=== PATIENT | male | born 1935 | race Caucasian/White ===

== ENCOUNTER 2017-03-11 15:45 | Emergency (ER) | payer OTHER ==
--- NOTE | 2017-03-11 16:09 | PDOC ---
History of Present Illness - General Stated Complaint: CHEST PAIN Time Seen by Provider: 03/11/17 16:04 - History of Present Illness Initial Comments: 03/11/17 16:08 Mr. Last is an 81 yo male with a significant past medical history of HTN, Dementia (nonverbal) and Schizophrenia on Norvasc and Valsartan who presents to the emergency department from rehab facility after he was complaining of pain to the R shoulder. The patient denies chest pain, shortness of breath, headache and dizziness. Denies fever, chills, nausea, vomit, diarrhea and constipation. Denies dysuria, frequency, urgency and hematuria. Allergies: NKDA Past History - Past Medical History Allergies/Adverse Reactions: Allergies Allergy/AdvReac Type Severity Reaction Status Date / Time No Known Allergies Allergy Verified 03/11/17 16:12 Home Medications: Ambulatory Orders Aa/Hydrolyzed Collagen, Whey [Lps Neutral Flavor Liquid] 960 ml PO BID 03/11/17 Acetaminophen 650 mg PO Q6H PRN 03/11/17 Amlodipine Besylate 7.5 mg PO DAILY 03/11/17 Dorzolamide/Timolol/Pf [Cosopt Pf Eye Drops] 1 each OP BID 03/11/17 Labetalol HCl 100 mg PO BID 03/11/17 Lactulose [Cephulac -] 10 gm PO DAILY 03/11/17 Lanolin/Mineral Oil [Eucerin Original Lotion] 250 ml TP TID 03/11/17 Latanoprost 0.005% Eye Drops [Xalatan 0.005% Eye Drops -] 1 drop OD HS 03/11/17 Multivitamin [Poly-Vitamin] 1 each PO DAILY 03/11/17 Quetiapine Fumarate [Seroquel -] 12.5 mg PO HS 03/11/17 Valsartan [Diovan] 160 mg PO DAILY 03/11/17 Cardiac Disorders: No CVA: (APHASIA/ stroke, TBI) CHF: No Diabetes: Yes GI Disorders: Yes (colitis) HTN: Yes Hypercholesterolemia: Yes Psychiatric Problems: Yes (EPISODIC MOOD DISORDER) - Surgical History Neurologic Surgery: Yes (BRAIN INJURY, INTRACRANIAL HEMORR) - Immunization History Immunization Up to Date: Yes - Suicide/Smoking/Psychosocial Hx Smoking History: Unknown if ever smoked Have you smoked in the past 12 months: No Hx Alcohol Use: No Drug/Substance Use Hx: No Substance Use Type: None Hx Substance Use Treatment: No Review of Systems - Review of Systems Comments:: Unable to perform due to nonverbal status. *Physical Exam - Physical Exam Comments: 03/11/17 16:09 GENERAL: Awake, alert to baseline, in no acute distress HEAD: No signs of trauma, normocephalic, atraumatic EYES: PERRLA, EOMI, sclera anicteric, conjunctiva clear ENT: Auricles normal inspection, hearing grossly normal, nares patent, oropharynx clear without exudates. Moist mucosa NECK: Normal ROM, supple, no lymphadenopathy, JVD, or masses LUNGS: No distress, speaks full sentences, clear to auscultation bilaterally HEART: Regular rate and rhythm, normal S1 and S2, no murmurs, rubs or gallops, peripheral pulses normal and equal bilaterally. ABDOMEN: Soft, nontender, normoactive bowel sounds. No guarding, no rebound. No masses EXTREMITIES: Normal inspection, Normal range of motion, no edema. No clubbing or cyanosis. NEUROLOGICAL: Cranial nerves II through XII grossly intact. SKIN: Warm, Dry, normal turgor, no rashes or lesions noted. ED Treatment Course - LABORATORY CBC & Chemistry Diagram: 03/11/17 16:40 03/11/17 16:40 Medical Decision Making - Medical Decision Making 03/11/17 19:01 Patient signed off to Dr. Funk for further care. *DC/Admit/Observation/Transfer Diagnosis at time of Disposition: Headache
--- NOTE | 2017-03-11 16:12 | PDOC ---
Attending Attestation - Resident Resident Name: Ravin Walters - ED Attending Attestation I have performed the following: I have examined & evaluated the patient, The case was reviewed & discussed with the resident, I agree w/resident's findings & plan, Exceptions are as noted - HPI HPI: 03/11/17 16:11 Right Shoulder Pain and Uncontrolled Htn - Physicial Exam PE: 03/11/17 16:11 Happy, Smiling, VSS, Moving Right Arm with no difficulties - Medical Decision Making 03/11/17 16:[address] Walters's Assessment and Plan Discharge Disposition - Diagnosis Headache Qualifiers: Headache type: tension-type Headache chronicity pattern: acute headache Intractability: not intractable Qualified Code(s): G44.209 - Tension-type headache, unspecified, not intractable Right shoulder pain Qualifiers: Chronicity: acute Qualified Code(s): M25.511 - Pain in right shoulder - Discharge Dispostion Disposition: HOME Condition at time of disposition: Good Last Admission D/C Date: 05/12/16 Admit: No - Patient Instructions Printed Discharge Instructions: DI for Headache Additional Instructions: No change in meds or therapies- Follow up with PMD tomorrow Return to us if problems Medical Decision Making - Medical Decision Making 03/11/17 21:07 Patient remains asymptomatic, labs reviewed, will dc back to [place], no change in therapies or meds
[2017-03-11 16:18] VITALS: TEMP 98.9; BMI 24.5
[2017-03-11 16:44] VITALS: BP 146/69; PULSE 70
[2017-03-11 16:46] LABS: MCH 28.4 pg (25.7-33.7); MCHC 33.6 g/dl (32.0-35.9); MEAN CELL VOLUME 84.3 fl (80-96); MEAN PLT VOLUME 11.8 fl (7.5-11.1); PLATELET COUNT 56 K/MM3 (134-434); RDW 16.3 % (11.9-15.9)
[2017-03-11 17:20] LABS: ALBUMIN 3.5 g/dl (3.4-5.0); ALK PHOS 50 U/L (45-117); ANION GAP 8 (8-16); BILIRUBIN,TOTAL 0.3 mg/dL (0.2-1.0); CALCIUM 8.6 mg/dL (8.5-10.1); CO2 27 mmol/L (21-32); CPK 264 IU/L (39-308); GLUCOSE,RANDOM 166 mg/dL (74-106); SGPT/ALT 21 U/L (12-78)
[2017-03-11 17:21] LABS: TROPONIN I < 0.02 ng/ml (0.00-0.05)
[2017-03-11 17:23] LABS: SGOT/AST 23 U/L (15-37)
[2017-03-11 17:45] LABS: PLATELET ESTIMATE DECREASED (NORMAL)
[2017-03-11 21:01] LABS: URINE APPEARANCE CLEAR; URINE BILIRUBIN NEGATIVE (NEGATIVE); URINE BLOOD NEGATIVE (NEGATIVE); URINE COLOR YELLOW; URINE GLUCOSE (UA) 1+ (NEGATIVE); URINE KETONE NEGATIVE (NEGATIVE); URINE LEUK ESTERASE NEGATIVE (NEGATIVE); URINE NITRITE NEGATIVE (NEGATIVE); URINE PROTEIN NEGATIVE (NEGATIVE); URINE UROBILINOGEN NEGATIVE mg/dL (0.2-1.0)
--- NOTE | 2017-03-12 09:52 | EKG ---
Test Reason : Blood Pressure : / mmHG Vent. Rate : 072 BPM Atrial Rate : 072 BPM P-R Int : 168 ms QRS Dur : 082 ms QT Int : 390 ms P-R-T Axes : 060 -34 078 degrees QTc Int : 427 ms NORMAL SINUS RHYTHM POSSIBLE LEFT ATRIAL ENLARGEMENT LEFT AXIS DEVIATION POSSIBLE INFERIOR INFARCT (CITED ON OR BEFORE 28-MAR-2015) NONSPECIFIC T WAVE ABNORMALITY ABNORMAL ECG Confirmed by RAY BLANKENSHIP MD ([id number]) on 03/12/2017 9:52:43 AM Referred By: Confirmed By:RAY BLANKENSHIP MD
== END 2017-03-11 21:49 | disposition home or self-care (01) ==
LOC: JER 15:45
DX: R51 Headache (principal); I10 Essential (primary) hypertension; F20.9 Schizophrenia, unspecified; F03.90 Unspecified dementia, unspecified severity, without behavioral disturbance, psychotic disturbance, mood disturbance, and anxiety; E11.9 Type 2 diabetes mellitus without complications
CPT/HCPCS: 36415; 70450-TC; 71010-TC; 80053; 81003; 82553; 84484; 85025; 93005; 93010; 99285-25

== ENCOUNTER 2018-12-07 21:28 | Emergency (ER) | payer OTHER ==
[2018-12-07] MEDS ORDERED: LACTATED RINGERS SOLUTION 1,000 ML IV STA (22:05)
--- NOTE | 2018-12-07 22:05 | PDOC ---
History of Present Illness - General Chief Complaint: Edema Stated Complaint: HERNIA Time Seen by Provider: 12/07/18 21:41 History Source: Patient Exam Limitations: Clinical Condition - History of Present Illness Initial Comments: 83 yo M from [facility] rehab center w a hx of a left sided inguinal hernia, TBI s/p intracranial brain injury, glaucoma, HTN, NIDDM, HCL, and chronic constipation presents to the ER sent by Dr. Thornton to have his left inguinal hernia evaluated and assessed whether it needs surgical intervention at this time. The patient has a large left inguinal hernia which was supposedly more swollen and painful today than it usually is. He does not answer when asked how long the hernia has been present. He simply just points to the hernia. PCP: Marck Thornton PSH: hernia surgery, brain surgery Social Hx: Non-verbal? resident of [place]. Denies smoking, drinking, or other substance usage. Allergies: NKA, NKDA Past History - Past Medical History Allergies/Adverse Reactions: Allergies Allergy/AdvReac Type Severity Reaction Status Date / Time No Known Allergies Allergy Verified 12/07/18 22:15 Home Medications: Ambulatory Orders Aa/Hydrolyzed Collagen, Whey [Lps Neutral Flavor Liquid] 960 ml PO BID 03/11/17 Acetaminophen 650 mg PO Q6H PRN 03/11/17 Amlodipine Besylate 7.5 mg PO DAILY 03/11/17 Dorzolamide/Timolol/Pf [Cosopt Pf Eye Drops] 1 each OP BID 03/11/17 Labetalol HCl 100 mg PO BID 03/11/17 Lactulose [Cephulac -] 10 gm PO DAILY 03/11/17 Lanolin/Mineral Oil [Eucerin Original Lotion] 250 ml TP TID 03/11/17 Latanoprost 0.005% Eye Drops [Xalatan 0.005% Eye Drops -] 1 drop OD HS 03/11/17 Multivitamin [Poly-Vitamin] 1 each PO DAILY 03/11/17 Quetiapine Fumarate [Seroquel -] 12.5 mg PO HS 03/11/17 Valsartan [Diovan] 160 mg PO DAILY 03/11/17 Cardiac Disorders: No CVA: (APHASIA/ stroke, TBI) CHF: No Diabetes: Yes GI Disorders: Yes (colitis) HTN: Yes Hypercholesterolemia: Yes Psychiatric Problems: Yes (EPISODIC MOOD DISORDER) - Surgical History Neurologic Surgery: Yes (BRAIN INJURY, INTRACRANIAL HEMORR) - Immunization History Immunization Up to Date: Yes - Suicide/Smoking/Psychosocial Hx Smoking History: Unknown if ever smoked Have you smoked in the past 12 months: No Hx Alcohol Use: No Drug/Substance Use Hx: No Substance Use Type: None Hx Substance Use Treatment: No Review of Systems - Review of Systems Able to Perform ROS?: No (Non-verbal) *Physical Exam - Physical Exam General Appearance: Yes: Nourished, Appropriately Dressed, Apparent Distress HEENT: positive: Normal ENT Inspection. negative: Normal Voice Neck: positive: Supple Respiratory/Chest: positive: Lungs Clear, Normal Breath Sounds Cardiovascular: positive: Regular Rhythm, Regular Rate Vascular Pulses: Dorsalis-Pedis (R): 2+, Doralis-Pedis (L): 2+ Gastrointestinal/Abdominal: positive: Normal Bowel Sounds, Soft, Hernia (Large left inguinal hernia). negative: Distended, Guarding, Rebound Male Genitalia: positive: inguinal hernia (There is a large portion of the bowel inside the left testicular sac. The hernia is reducible but very large. There is a clear fascial defect. No evidence of current incarceration or strangulation. ). negative: normal genitalia, discharge, testicular tenderness Lymphatic: negative: Adenopathy Musculoskeletal: positive: Normal Inspection. negative: CVA Tenderness Extremity: positive: Normal Capillary Refill, Normal Inspection, Normal Range of Motion Integumentary: positive: Normal Color, Dry, Warm Neurologic: positive: Normal Mood/Affect, Normal Response, Respond to painful stimul ED Treatment Course - LABORATORY CBC & Chemistry Diagram: 12/07/18 22:50 12/07/18 22:50 Medical Decision Making - Medical Decision Making 83 [facility] w a hx of a left sided inguinal hernia, TBI s/p intracranial brain injury, glaucoma, HTN, NIDDM, HCL, and chronic constipation presents to the ER sent by Dr. Thornton to have his left inguinal hernia evaluated and assessed whether it needs surgical intervention at this time. The patient has a large left inguinal hernia which was supposedly more swollen and painful today than it usually is. He does not answer when asked how long the hernia has been present. He simply just points to the hernia. Vital Signs Temp Pulse Resp BP Pulse Ox 98.1 F 76 16 148/85 98 12/07/18 22:13 12/07/18 22:13 12/07/18 22:13 12/07/18 22:13 12/07/18 22:13 DDx IBNLT: Inguinal hernia - reducible vs incarcerated vs strangulated, electrolyte/metabolic disturbance, Arrhythmia Plan: Labs, urine, EKG, cxr, NPO, IV hydration, Surgery Consult, Re-assess. Hernia successfully and repeatedly reduced by Surgeon. Patient is well appearing and has no present complaints. Dr. thornton is aware of his throbocytopenia and the repeatedly reducible nature of the hernia and agreed that it is okay to send the patient back to the [place]. There is no evidence of incarceration or strangulation. Plan is to DC the patient back to the [place]. - Will print out copy of labs from ER. *DC/Admit/Observation/Transfer Diagnosis at time of Disposition: Recurrent inguinal hernia of left side without obstruction or gangrene - Discharge Dispostion Disposition: HOME Condition at time of disposition: Stable Decision to Admit order: No - Referrals Referrals: Marck Thornton MD [Primary Care Provider] - - Patient Instructions Printed Discharge Instructions: DI for Groin Hernia Additional Instructions: We have reduced your hernia in the ER and are now sending you back to the prison. Come back to the Er immediately if your hernia causes any nausea or vomiting, if it cant be pushed back in, or if he is in pain, or has any other new or worsening concerns. Thank you for coming to the [facility] ER. We hope you feel better soon! Print Language: IRISH - Post Discharge Activity
[2018-12-07 22:15] VITALS: BP 148/85; PULSE 76; TEMP 98.1; BMI 26.4
[2018-12-07 23:11] LABS: BASO % 0.7 % (0-2.0); EOS % 0.1 % (0-4.5); HEMATOCRIT 36.4 % (35.4-49); HEMOGLOBIN 12.3 GM/dL (11.7-16.9); LYMPH % 57.4 % (8-40); MCH 30.1 pg (25.7-33.7); MCHC 33.8 g/dl (32.0-35.9); MEAN CELL VOLUME 88.9 fl (80-96); MEAN PLT VOLUME 10.8 fl (7.5-11.1); MONO % 2.2 % (3.8-10.2); NEUT % 39.6 % (42.8-82.8); PLATELET COUNT 62 K/MM3 (134-434); RBC 4.09 M/mm3 (4.00-5.60); RDW 15.2 % (11.9-15.9); WHITE BLOOD COUNT 2.8 K/mm3 (4.0-10.0)
[2018-12-07 23:20] LABS: PROTHROMBIN TIME (PATIENT) 11.8 SEC (9.7-13.0)
[2018-12-07 23:39] LABS: ALBUMIN 3.8 g/dl (3.4-5.0); BILIRUBIN,TOTAL 0.3 mg/dL (0.2-1); BLOOD UREA NITROGEN 25.4 mg/dL (7-18); CALCIUM 8.8 mg/dL (8.5-10.1); CREATININE 0.8 mg/dL (0.55-1.3); POTASSIUM 3.9 mmol/L (3.5-5.1); TOT PROT 7.4 g/dl (6.4-8.2)
--- NOTE | 2018-12-08 01:16 | PDOC ---
Documentation entered by Kelly Valerio SCRIBE, acting as scribe for Madai Bronson DO. Madai Bronson DO: This documentation has been prepared by the john, Kelly Valerio SCRIBE, under my direction and personally reviewed by me in its entirety. I confirm that the documentation accurately reflects all work, treatment, procedures, and medical decision making performed by me. Attending Attestation - Resident Resident Name: Danny Le - ED Attending Attestation I have performed the following: I have examined & evaluated the patient, The case was reviewed & discussed with the resident, I agree w/resident's findings & plan - HPI HPI: 12/07/18 23:21 The patient is an 83 year old male, from [facility], with a significant PMH of inguinal hernia, TBI (s/p intracranial brain injury), glaucoma, HTN, NIDDM, HCL, and chronic constipation who presents to the emergency department referred by Dr. Thornton, for evaluation and possible admission for inguinal hernia surgery with Dr. Nair. The patient states the pain is worsened with exertion. The patient denies any trauma to the area. The patient denies chest pain, shortness of breath, headache and dizziness. Denies fever, chills, nausea, vomiting, diarrhea and constipation. Denies dysuria, frequency, urgency and hematuria. Allergies: NKA, NKDA Past surgical history: INTRACRANIAL HEMORR Social history: None reported PCP: Marck Mcghee General Surgeon: Dr. Nair - Physicial Exam PE: 12/07/18 23:21 Agree with resident exam. - Medical Decision Making 12/08/18 01:15 83-year-old male sent for evaluation of a left inguinal hernia Hernia reduced at the bedside by surgery Patient will be discharged back to his assisted facility and will follow- up outpatient
--- NOTE | 2018-12-08 01:34 | CONSULT ---
Consult Consult Specialty:: General Surgery Referred by:: Apple Thornton/Darrion Le Reason for Consultation:: left inguinal hernia - increased pain and swelling today - History of Present Illness Chief Complaint: pt does not offer - per snf, hernia was more painful and larger today History of Present Illness: 83yo M with h/o TBI/SDH/dementia/aphasia, HTN, hypothyroidism, DM2, thrombocytopenia, possible h/o hernia repair (?body location), DNR status, with known left inguinal hernia, was sent to ER from [facility] for increased pain and size of hernia today. Nephew/HCP had accompanied patient , but is no longer at bedside. Pt is nonverbal; history is from Dr. Thornton, chart, [place] records and ER personnel only. No reports of N/V. Surgery was asked to assess. He is seen and examined in ER - resident states hernia was mostly reducible by him earlier. Pt has not had any pain medicine. Initially mildly agitated, but calms easily and appears comfortable and smiling by end of exam. Labs significant for wbc 2.8 with ANC 1.1, platelets 62K, lactate 0.7. - History Source History Provided By: Medical Record, Transfer Record Limitations to Obtaining History: Other (nonverbal, dementia, clinical condition ) - Past Medical History HOME ATTENDANT: Yes: CVA, Other (traumatic brain injury/SDH) Cardio/Vascular: Yes: HTN, Hyperlipdemia Heme/Onc: Yes: Thrombocytopenia (being worked up by manager product support - unknown etiology) ENT: Yes: Other (glaucoma) Endocrine: Yes: Diabetes Mellitus, Hypothyroidism - Past Surgical History Past Surgical History: Yes: Craniotomy, Hernia Repair (??? upper midline scar, no groin scars) - Alcohol/Substance Use Hx Alcohol Use: No - Smoking History Smoking history: Unknown if ever smoked Have you smoked in the past 12 months: No - Social History Usual Living Arrangement: Senior Living ADL: Support Services History of Recent Travel: No Home Medications - Allergies Allergies/Adverse Reactions: Allergies Allergy/AdvReac Type Severity Reaction Status Date / Time No Known Allergies Allergy Verified 12/07/18 22:15 - Home Medications Home Medications: Ambulatory Orders Aa/Hydrolyzed Collagen, Whey [Lps Neutral Flavor Liquid] 960 ml PO BID 03/11/17 Acetaminophen 650 mg PO Q6H PRN 03/11/17 Amlodipine Besylate 7.5 mg PO DAILY 03/11/17 Dorzolamide/Timolol/Pf [Cosopt Pf Eye Drops] 1 each OP BID 03/11/17 Labetalol HCl 100 mg PO BID 03/11/17 Lactulose [Cephulac -] 10 gm PO DAILY 03/11/17 Lanolin/Mineral Oil [Eucerin Original Lotion] 250 ml TP TID 03/11/17 Latanoprost 0.005% Eye Drops [Xalatan 0.005% Eye Drops -] 1 drop OD HS 03/11/17 Multivitamin [Poly-Vitamin] 1 each PO DAILY 03/11/17 Quetiapine Fumarate [Seroquel -] 12.5 mg PO HS 03/11/17 Valsartan [Diovan] 160 mg PO DAILY 03/11/17 Home Medications (free text): synthroid, glipizide;. NO asa or blood thinners Family Disease History - Family Disease History Family Disease History: Other: Son (hypercholesterol) Review of Systems Unable to obtain ROS, reason: pt nonverbal Physical Exam Vital Signs: Vital Signs Temperature 98.1 F 12/07/18 22:13 Pulse Rate 76 12/07/18 22:13 Respiratory Rate 16 12/07/18 22:13 Blood Pressure 148/85 12/07/18 22:13 O2 Sat by Pulse Oximetry (%) 98 12/07/18 22:13 Constitutional: Yes: Well Nourished, No Distress, Calm Eyes: Yes: Conjunctiva Clear, EOM Intact HENT: Yes: Atraumatic, Normocephalic Neck: Yes: Supple, Trachea Midline Cardiovascular: Yes: Regular Rate and Rhythm Respiratory: Yes: Regular, CTA Bilaterally Gastrointestinal: Yes: Normal Bowel Sounds, Soft, Hernia (left inguinoscrotal, moderate-sized; repeatedly reducible though it comes back out fairly easily, nontender; bilateral testes palpable in scrotum), Other (healed upper midline scar). No: Distention, Tenderness, Tenderness, Epigastrium ...Rectal Exam: Yes: Deferred Renal/: No: Incontinence, Scrotal Edema Musculoskeletal: No: Joint Stiffness, Joint Swelling Extremities: No: Cool, Cyanosis Edema: Yes Edema: LLE: Trace, RLE: Trace Peripheral Pulses WNL: Yes Integumentary: Yes: Venous Stasis Changes. No: Jaundice, Rash Neurological: Yes: Alert, Aphasia (mumbles but mostly nonverbal/unintelligible speech), Pre-Existing Deficit (see hpi) Psychiatric: Yes: Alert. No: Agitated (initially mildly agitated, calms/ redirects fairly easily) Labs: CBC, BMP 12/07/18 22:50 12/07/18 22:50 CMP Sodium 141 mmol/L (136-145) 12/07/18 22:50 Potassium 3.9 mmol/L (3.5-5.1) 12/07/18 22:50 Chloride 109 mmol/L (98-107) H 12/07/18 22:50 Carbon Dioxide 29 mmol/L (21-32) 12/07/18 22:50 Anion Gap 4 MMOL/L (8-16) L 12/07/18 22:50 BUN 25.4 mg/dL (7-18) H 12/07/18 22:50 Creatinine 0.8 mg/dL (0.55-1.3) 12/07/18 22:50 Est GFR (CKD-EPI)AfAm 94.41 12/07/18 22:50 Est GFR (CKD-EPI)NonAf 81.46 12/07/18 22:50 Random Glucose 103 mg/dL (74-106) 12/07/18 22:50 Lactic Acid 0.6 mmol/L (0.4-2.0) 12/07/18 22:50 Calcium 8.8 mg/dL (8.5-10.1) 12/07/18 22:50 Total Bilirubin 0.3 mg/dL (0.2-1) 12/07/18 22:50 AST 20 U/L (15-37) 12/07/18 22:50 ALT 28 U/L (13-61) 12/07/18 22:50 Alkaline Phosphatase 50 U/L (45-117) 12/07/18 22:50 Total Protein 7.4 g/dl (6.4-8.2) 12/07/18 22:50 Albumin 3.8 g/dl (3.4-5.0) 12/07/18 22:50 Lipase 131 U/L (73-393) 12/07/18 22:50 INR, PTT INR 1.00 (0.83-1.09) 12/07/18 22:50 Problem List - Problems (1) Inguinal hernia of left side without obstruction or gangrene Assessment/Plan: left inguinoscrotal hernia reducible, though it comes back out easily, nontender normal lactate, no history of n/v given not incarcerated, no evidence of bowel compromise or obstruction given DNR status, thrombocytopenia, reducibility - surgical intervention is not necessary at this time would not be inclined to consider operative repair unless it becomes incarcerated or strangulated (threatening bowel viability), or has associated bowel obstruction called and discussed with Dr. Thornton, who is in agreement discussed with Drs. Le and Aiyana in ER ok for d/c back to snf Thank you for the opportunity to participate in the care of this patient. Code(s): K40.90 - UNIL INGUINAL HERNIA, W/O OBST OR GANGR, NOT SPCF RECUR (2) Thrombocytopenia Code(s): D69.6 - THROMBOCYTOPENIA, UNSPECIFIED (3) Aphasia Code(s): R47.01 - APHASIA (4) Diabetes mellitus Code(s): E11.9 - TYPE 2 DIABETES MELLITUS WITHOUT COMPLICATIONS Qualifiers: Diabetes mellitus type: type 2 Diabetes mellitus terminal make up operator insulin use: without terminal make up operator use Diabetes mellitus complication status: without complication Qualified Code(s): E11.9 - Type 2 diabetes mellitus without complications (5) Hypothyroidism Code(s): E03.9 - HYPOTHYROIDISM, UNSPECIFIED Qualifiers: Hypothyroidism type: unspecified Qualified Code(s): E03.9 - Hypothyroidism , unspecified (6) HTN (hypertension) Code(s): I10 - ESSENTIAL (PRIMARY) HYPERTENSION Qualifiers: Hypertension type: essential hypertension Qualified Code(s): I10 - Essential (primary) hypertension (7) Traumatic brain injury Code(s): S06.9X9A - UNSP INTRACRANIAL INJURY W LOC OF UNSP DURATION, INIT Qualifiers: Encounter type: sequela Loss of consciousness presence/duration: with LOC of unspecified duration Qualified Code(s): S06.9X9S - Unspecified intracranial injury with loss of consciousness of unspecified duration, sequela
--- NOTE | 2018-12-08 13:41 | EKG ---
Test Reason : Blood Pressure : / mmHG Vent. Rate : 067 BPM Atrial Rate : 067 BPM P-R Int : 184 ms QRS Dur : 086 ms QT Int : 412 ms P-R-T Axes : 069 -37 063 degrees QTc Int : 435 ms NORMAL SINUS RHYTHM LEFT AXIS DEVIATION POSSIBLE ANTERIOR INFARCT , AGE UNDETERMINED ABNORMAL ECG WHEN COMPARED WITH ECG OF 11-MAR-2017 15:53, NONSPECIFIC T WAVE ABNORMALITY NO LONGER EVIDENT IN ANTERIOR LEADS Confirmed by TSERING JASMINE, JERONIMO ([id number]) on 12/08/2018 1:40:49 PM Referred By: Confirmed By:JERONIMO CAGLE MD
== END 2018-12-08 03:48 ==
LOC: JER 21:28
PROC: 3E0337Z Introduction of Electrolytic and Water Balance Substance into Peripheral Vein, Percutaneous Approach (ICD-10-PCS; principal; 2018-12-07)
DX: K40.91 Unilateral inguinal hernia, without obstruction or gangrene, recurrent (principal); I10 Essential (primary) hypertension; E78.5 Hyperlipidemia, unspecified; D69.6 Thrombocytopenia, unspecified; E03.9 Hypothyroidism, unspecified; E11.9 Type 2 diabetes mellitus without complications; Z79.84 Long term (current) use of oral hypoglycemic drugs; Z87.820 Personal history of traumatic brain injury; I69.820 Aphasia following other cerebrovascular disease; F39 Unspecified mood [affective] disorder
CPT/HCPCS: 36415; 71045-TC-FY; 80053; 83605; 83690; 85025; 85610; 93005; 93010; 99283-25

== ENCOUNTER 2019-04-16 17:08 | Emergency (ER) | payer OTHER ==
[2019-04-16 17:21] VITALS: BMI 22.7
--- NOTE | 2019-04-16 17:30 | PDOC ---
Attending Attestation - Resident Resident Name: Fredis Ventura - ED Attending Attestation I have performed the following: I have examined & evaluated the patient, The case was reviewed & discussed with the resident, I agree w/resident's findings & plan, Exceptions are as noted - HPI HPI: 04/16/19 17:41 83yo male with hx of TBI who is nonverbal at baseline presents for eval of a fall at the [facility]. Pt is unable to provide any hx. Per the son, pt able to walk and usually more responsive. Pt awake, not following commands. +reflexes intact , no pain with rom of joints. - Physicial Exam PE: 04/16/19 17:48 Gen: awake, opens eyes, follows simple commands, but will not follow commands with more complex requests heent: pupils 3mm, eomi, mmm, poor dentition neck: midline incision to posterior c spine well healed, no ttp back: no ttp midline heart: +s1s2 reg lungs: cta b/l abd: soft, nt/nd +bs ext: no c/c/e, neg babinski, no pain with rom, pulses intact neuro: nonverbal, not following commands, appears lethargic - Medical Decision Making 04/16/19 17:50 a/p: 83yo male with an unwitnessed fall at the [facility] -hx of tbi, unclear baseline ms and mobility- will call [facility] -will send labs, ua -finger stick -head ct, c spine ct -will monitor and reassess 04/16/19 17:53 finger stick 96 04/16/19 18:07 cxr clear 04/16/19 18:46 low wbc and hgb - at baseline ua neg resident discussed the case with the nurse at the [facility] - states they were walking by the room and found the patient on the ground, awake, small red spot to his head - concern for fall out of bed onto the carpet. sent for eval 04/17/19 09:10 pt went to head ct and was signed out pending ct imaging and further eval to the night staff Heart Score/ECG Review - ECG Intrepretation Comment:: 04/16/19 18:07 sinus at 66, q waves inferiorly which are age indeterminate, nl axis, no acute st/t wave findings
--- NOTE | 2019-04-16 17:45 | PDOC ---
History of Present Illness - General Chief Complaint: Injury Stated Complaint: FALL Time Seen by Provider: 04/16/19 17:12 - History of Present Illness Initial Comments: 04/16/19 17:49 83yo M with h/o TBI/SDH/dementia/aphasia, HTN, hypothyroidism, DM2, thrombocytopenia, possible h/o hernia repair (?body location), DNR status, with known left inguinal hernia, was sent to ER from [facility] following unwitnessed fall around 1430 today. The nurse at the longterm suspects that he hid his head since he saw some redness there. Son at the bedside. He says that his father seems more "out of it" than usual. Past History - Past Medical History Allergies/Adverse Reactions: Allergies Allergy/AdvReac Type Severity Reaction Status Date / Time No Known Allergies Allergy Verified 04/16/19 17:21 Home Medications: Ambulatory Orders Aa/Hydrolyzed Collagen, Whey [Lps 15-30 Liquid] 15 g PO BID 04/16/19 Acetaminophen [Tylenol] 325 mg PO ASDIR 04/16/19 Amlodipine Besylate [Norvasc -] 2.5 mg PO DAILY 04/16/19 Dorzolamide HCl/Pf [Dorzolamide 2% Eye Drop] 10 ml OP TID 04/16/19 Glipizide 5 mg PO DAILY 04/16/19 Labetalol HCl 100 mg PO BID 04/16/19 Levothyroxine [Synthroid -] 50 mcg PO DAILY 04/16/19 Potassium Chloride [K-Dur -] 20 meq PO DAILY 04/16/19 Quetiapine Fumarate [Seroquel -] 25 mg PO BID 04/16/19 Sennosides [Senna] 8.6 mg PO DAILY 04/16/19 Cardiac Disorders: No CVA: (APHASIA/ stroke, TBI) COPD: No CHF: No Diabetes: Yes GI Disorders: Yes (colitis) HTN: Yes Hypercholesterolemia: Yes Psychiatric Problems: Yes (EPISODIC MOOD DISORDER) - Surgical History Neurologic Surgery: Yes (BRAIN INJURY, INTRACRANIAL HEMORR) - Immunization History Immunization Up to Date: Yes - Psycho Social/Smoking Cessation Hx Smoking History: Never smoked Have you smoked in the past 12 months: No Hx Alcohol Use: No Drug/Substance Use Hx: No Substance Use Type: None Hx Substance Use Treatment: No Review of Systems - Review of Systems Able to Perform ROS?: No (non-verbal) *Physical Exam - Vital Signs Last Vital Signs Temp Pulse Resp BP Pulse Ox 98 F 85 18 122/68 97 04/16/19 17:13 04/16/19 17:13 04/16/19 17:13 04/16/19 17:13 04/16/19 17:13 - Physical Exam General Appearance: Yes: Thin HEENT: positive: EOMI. negative: PETER (pupils equal, nonreactive. 2mm b/l) Neck: positive: Normal Thyroid Respiratory/Chest: positive: Lungs Clear, Normal Breath Sounds. negative: Chest Tender, Respiratory Distress Cardiovascular: positive: Regular Rhythm, Regular Rate, S1, S2 Gastrointestinal/Abdominal: positive: Normal Bowel Sounds, Flat, Soft. negative : Tender Extremity: positive: Normal Capillary Refill, Normal Inspection, Normal Range of Motion Integumentary: positive: Normal Color, Dry, Warm Neurologic: positive: Other. negative: Facial Droop (baseline unable to comply with commands ) ED Treatment Course - LABORATORY CBC & Chemistry Diagram: 04/16/19 17:53 04/16/19 17:53 - RADIOLOGY Radiology Studies Ordered: Category Date Time Status CERVICAL SPINE CT W/O CONTR [CT] Stat CT Scan 04/16/19 17:[address] WITHOUT CONTRAST [CT] Stat CT Scan 04/16/19 17:12 Ordered CXRPORT [CHEST X-RAY PORTABLE*] [RAD] Stat Radiology 04/16/19 17:13 Taken Medical Decision Making - Medical Decision Making 04/16/19 18:13 83yo M with h/o TBI/SDH/dementia/aphasia, HTN, hypothyroidism, DM2, thrombocytopenia, possible h/o hernia repair (?body location), DNR status, with known left inguinal hernia, was sent to ER from [facility] following unwitnessed fall around 1430 toda. Will check for head and neck fracture/bleeed with ct. Labs pending. 04/16/19 18:15 CBC and UA negative. Leukocytopenia, seemingly chronic. 04/16/19 18:16 cxr neg 04/16/19 21:22 CT head: Large acute subdural hematoma producing significant mass effect on the right cerebral hemisphere with significant midline shift of the right thalamus, cingulate gyrus and medial temporal lobe to the left. Effacement of the third ventricle and trapping of the left lateral ventricle. Small amount of blood is also noted pooling dependently within the occipital horn. Moderate sized subdural hematoma to the left side of the interhemispheric falx along the medial left frontal and parietal cortex. Edema within the left lateral occipital and inferior parietal cortical tissues and right inferior cerebellum. Spoke to son who despite the patient's DNR order wishes for neurosurgery to prolong life. Spoke to Neurosurgeron who advised Keppra 500mg (and Cardene if systolic pressure is above 140 but patient's was at 135 at the time) Patient transferred to [facility] to Dr. Velasquez for neurosurgery. 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 Velasquez
[2019-04-16 18:06] LABS: BASO % 0.5 % (0-2.0); EOS % 0.9 % (0-4.5); HEMATOCRIT 31.5 % (35.4-49); HEMOGLOBIN 10.9 GM/dL (11.7-16.9); LYMPH % 69.1 % (8-40); MCH 32.3 pg (25.7-33.7); MCHC 34.4 g/dl (32.0-35.9); MEAN CELL VOLUME 93.8 fl (80-96); MEAN PLT VOLUME 10.8 fl (7.5-11.1); MONO % 1.3 % (3.8-10.2); NEUT % 28.2 % (42.8-82.8); PH,URINE 7.5 (5.0-8.0); RBC 3.36 M/mm3 (4.00-5.60); RDW 15.7 % (11.9-15.9); URINE APPEARANCE CLEAR; URINE BILIRUBIN NEGATIVE (NEGATIVE); URINE COLOR YELLOW; URINE GLUCOSE (UA) NEGATIVE (NEGATIVE); URINE KETONE NEGATIVE (NEGATIVE); URINE LEUK ESTERASE NEGATIVE (NEGATIVE); URINE NITRITE NEGATIVE (NEGATIVE); URINE PROTEIN NEGATIVE (NEGATIVE); URINE UROBILINOGEN 0.2 mg/dL (0.2-1.0); WHITE BLOOD COUNT 2.2 K/mm3 (4.0-10.0)
[2019-04-16 18:52] LABS: PLATELET COUNT 80 K/MM3 (134-434)
[2019-04-16 18:53] LABS: ALBUMIN 3.7 g/dl (3.4-5.0); ALK PHOS 55 U/L (45-117); ANION GAP 6 MMOL/L (8-16); BILIRUBIN,TOTAL 0.4 mg/dL (0.2-1); BLOOD UREA NITROGEN 33.1 mg/dL (7-18); CHLORIDE 107 mmol/L (98-107); CO2 27 mmol/L (21-32); GLUCOSE,RANDOM 96 mg/dL (74-106); PLATELET ESTIMATE DECREASED; POTASSIUM 5.4 mmol/L (3.5-5.1); SGOT/AST 31 U/L (15-37); SGPT/ALT 32 U/L (13-61); SODIUM 139 mmol/L (136-145); TOT PROT 7.6 g/dl (6.4-8.2)
[2019-04-16 20:57] VITALS: TEMP 97.7
[2019-04-16] MEDS ORDERED: levETIRAcetam 500 MG/5 ML INJECTION VIAL IVPB ONE ×2 (21:18→21:25)
[2019-04-16] MEDS ORDERED: NICARDIPINE 25 MG in DEXTROSE 5%-WATER - 240 ML IVPB SCH (21:45)
[2019-04-16 21:59] VITALS: BP 134/70; PULSE 78
--- NOTE | 2019-04-17 10:03 | EKG ---
Test Reason : Blood Pressure : / mmHG Vent. Rate : 066 BPM Atrial Rate : 066 BPM P-R Int : 188 ms QRS Dur : 086 ms QT Int : 418 ms P-R-T Axes : 061 -26 059 degrees QTc Int : 438 ms NORMAL SINUS RHYTHM POSSIBLE LEFT ATRIAL ENLARGEMENT POSSIBLE INFERIOR INFARCT , AGE UNDETERMINED ABNORMAL ECG WHEN COMPARED WITH ECG OF 07-DEC-2018 22:59, NO SIGNIFICANT CHANGE WAS FOUND Confirmed by VANNA JASMINE, MIN ([id number]) on 04/17/2019 10:02:58 AM Referred By: Confirmed By:MIN PRABHAKAR MD
--- NOTE | 2019-04-19 11:40 | EKG ---
Test Reason : Blood Pressure : / mmHG Vent. Rate : 065 BPM Atrial Rate : 065 BPM P-R Int : 192 ms QRS Dur : 080 ms QT Int : 424 ms P-R-T Axes : 065 -24 062 degrees QTc Int : 440 ms NORMAL SINUS RHYTHM NORMAL ECG WHEN COMPARED WITH ECG OF 16-APR-2019 17:54, NO SIGNIFICANT CHANGE WAS FOUND Confirmed by HEMA REYNOSO MD ([id number]) on 04/19/2019 11:39:29 AM Referred By: Confirmed By:HEMA REYNOSO MD
== END 2019-04-16 22:00 | disposition short-term general hospital (02) ==
LOC: JER 17:08
PROC: 3E033GC Introduction of Other Therapeutic Substance into Peripheral Vein, Percutaneous Approach (ICD-10-PCS; principal; 2019-04-16)
DX: I62.01 Nontraumatic acute subdural hemorrhage (principal); G93.9 Disorder of brain, unspecified; W18.39XA Other fall on same level, initial encounter; Y93.89 Activity, other specified; Y92.122 Bedroom in nursing home as the place of occurrence of the external cause; Y99.8 Other external cause status; Z87.820 Personal history of traumatic brain injury; I69.820 Aphasia following other cerebrovascular disease; E11.9 Type 2 diabetes mellitus without complications; I10 Essential (primary) hypertension; Z79.84 Long term (current) use of oral hypoglycemic drugs; E03.9 Hypothyroidism, unspecified; D69.6 Thrombocytopenia, unspecified; F39 Unspecified mood [affective] disorder; Z87.19 Personal history of other diseases of the digestive system
CPT/HCPCS: 36415; 70450-TC; 71045-TC-FY; 72125-TC; 80053; 81003; 82962; 84484; 85025; 87086; 93005; 93010; 96374; 99285-25

== ENCOUNTER 2019-05-03 16:16 | Inpatient (IN) | payer OTHER ==
--- NOTE | 2019-05-03 17:00 | PDOC ---
History of Present Illness - General Chief Complaint: Blood Transfusion Stated Complaint: LOW PLATELET Time Seen by Provider: 05/03/19 16:28 - History of Present Illness Initial Comments: Hx limited 2/2 patient condition. Mr. Last is a 83 y/o male, PMH significant for traumatic subdural hematoma s/p neurosurg 22 days ago, sent in by PCP for low platelets. Patient was seen by utility clerk Dr. Nobles today who noted a platelet count of 74. Sent in for transfusion of 3 units of platelets for counts above 100 because of his recent history of brain bleed. Patient is non-verbal and has difficulty ambulating at baseline. History obtained from via patient accounting representative. Past History - Past Medical History Allergies/Adverse Reactions: Allergies Allergy/AdvReac Type Severity Reaction Status Date / Time No Known Allergies Allergy Verified 05/03/19 16:20 Home Medications: Ambulatory Orders Acetaminophen [Tylenol] 325 mg PO ASDIR 04/16/19 Amlodipine Besylate [Norvasc -] 2.5 mg PO DAILY 04/16/19 Dorzolamide HCl/Pf [Dorzolamide 2% Eye Drop] 10 ml OP TID 04/16/19 Glipizide 5 mg PO DAILY 04/16/19 Labetalol HCl 100 mg PO BID 04/16/19 Levothyroxine [Synthroid -] 50 mcg PO DAILY 04/16/19 Sennosides [Senna] 8.6 mg PO DAILY 04/16/19 Albuterol 2.5/Ipratropium 0.5 [Duoneb -] 1 neb IH QID 05/03/19 Docusate Liquid [Colace Liquid -] 200 mg PO HS 05/03/19 Finasteride 5 mg PO DAILY 05/03/19 Irbesartan 150 mg PO DAILY 05/03/19 Latanoprost/Pf [Latanoprost 0.005% Eye Drop] 7.5 ml OP HS 05/03/19 Multivitamin [Multiple Vitamins] 1 each PO DAILY 05/03/19 Cardiac Disorders: No CVA: (APHASIA/ stroke, TBI) COPD: No CHF: No Diabetes: Yes GI Disorders: Yes (colitis) HTN: Yes Hypercholesterolemia: Yes Psychiatric Problems: Yes (EPISODIC MOOD DISORDER) - Surgical History Neurologic Surgery: Yes (BRAIN INJURY, INTRACRANIAL HEMORR) - Immunization History Immunization Up to Date: Yes - Psycho Social/Smoking Cessation Hx Smoking History: Never smoked Have you smoked in the past 12 months: No Hx Alcohol Use: No Drug/Substance Use Hx: No Substance Use Type: None Hx Substance Use Treatment: No Review of Systems - Review of Systems Able to Perform ROS?: No *Physical Exam - Vital Signs Last Vital Signs Temp Pulse Resp BP Pulse Ox 98.2 F 87 16 178/90 H 96 05/03/19 16:20 05/03/19 16:20 05/03/19 16:20 05/03/19 16:20 05/03/19 16:20 - Physical Exam Comments: GENERAL: Awake, alert, in no acute distress_ HEAD: No signs of trauma, normocephalic, atraumatic _ EYES: PERRLA, EOMI, sclera conjunctiva clear_ ENT: nares patent, oropharynx clear without exudates. No uvular deviation. Moist mucosa_ NECK: Normal ROM, supple, no lymphadenopathy, JVD, or masses_ LUNGS: No distress, clear to auscultation bilaterally _ HEART: Regular rate and rhythm, normal S1 and S2, no murmurs appreciated, peripheral pulses normal and equal bilaterally._ ABDOMEN: G-tube in place. Soft, nontender, normoactive bowel sounds. No guarding , no rebound. No masses_ EXTREMITIES: Normal inspection, Normal range of motion, no edema. No clubbing or cyanosis_ NEUROLOGICAL: Cranial nerves II through XII grossly intact. Limited 2/2 patient' s difficulty with following exam instructions. SKIN: Warm, Dry, normal turgor, no rashes or lesions noted_ ED Treatment Course - LABORATORY CBC & Chemistry Diagram: 05/03/19 17:12 05/03/19 17:17 - RADIOLOGY Radiology Studies Ordered: Category Date Time Status CHEST X-RAY PORTABLE* [RAD] Stat Radiology 05/03/19 16:54 Ordered Medical Decision Making - Medical Decision Making 05/03/19 16:59 83M s/p traumatic SDH and neurosurgery 22 days ago, sent in for low platelets ( 74) per Dr. Nobles hematology. -transfuse 3 units platelets, keep plt above 100 05/03/19 17:56 EKG shows NSR, 87 bpm, no ST elevation/depression, left axis deviation, QTc 469. 05/03/19 1800 Labs reviewed. Plt low at 69. 3 units of platelets ordered. 05/03/19 1900 Pt signed out to Dr. Dumont. Discharge - Discharge Information Problems reviewed: Yes Clinical Impression/Diagnosis: Thrombocytopenia Traumatic brain injury Qualifiers: Encounter type: sequela Loss of consciousness presence/duration: with LOC of unspecified duration Qualified Code(s): S06.9X9S - Unspecified intracranial injury with loss of consciousness of unspecified duration, sequela Condition: Stable - Follow up/Referral - Patient Discharge Instructions - Post Discharge Activity
[2019-05-03 17:30] LABS: EOS % 0.4 % (0-4.5); HEMATOCRIT 27.1 % (35.4-49); HEMOGLOBIN 8.9 GM/dL (11.7-16.9); LYMPH % 28.7 % (8-40); MCH 30.1 pg (25.7-33.7); MCHC 32.6 g/dl (32.0-35.9); MEAN CELL VOLUME 92.1 fl (80-96); MEAN PLT VOLUME 10.4 fl (7.5-11.1); MONO % 50.4 % (3.8-10.2); NEUT % 20.5 % (42.8-82.8); PLATELET COUNT 69 K/MM3 (134-434); RBC 2.95 M/mm3 (4.00-5.60); RDW 15.7 % (11.9-15.9); WHITE BLOOD COUNT 6.7 K/mm3 (4.0-10.0)
[2019-05-03 17:55] LABS: ALBUMIN 3.2 g/dl (3.4-5.0); BILIRUBIN,TOTAL 0.4 mg/dL (0.2-1); BLOOD UREA NITROGEN 23.3 mg/dL (7-18); CREATININE 0.8 mg/dL (0.55-1.3); POTASSIUM 4.4 mmol/L (3.5-5.1); TOT PROT 7.1 g/dl (6.4-8.2)
[2019-05-03 18:19] LABS: PLATELET ESTIMATE DECREASED
--- NOTE | 2019-05-03 18:50 | PDOC ---
Documentation entered by Gracie Ambrosio SCRIBE, acting as scribe for Gabrielle So MD. Gabrielle oS MD: This documentation has been prepared by the Daily lopez Joy, SCRIBE, under my direction and personally reviewed by me in its entirety. I confirm that the documentation accurately reflects all work, treatment, procedures, and medical decision making performed by me. Attending Attestation - Resident Resident Name: Jose Rosenbaum - ED Attending Attestation I have performed the following: I have examined & evaluated the patient, The case was reviewed & discussed with the resident, I agree w/resident's findings & plan, Exceptions are as noted - HPI HPI: 05/03/19 16:59 The patient is an 83 year old male with significant past medical history of traumatic brain injury (s/p intracranial brain injury, nonverbal at baseline), subdural hematoma, dementia, aphasia, HTN, HCL, NIDDM/T2DM hypothyroidism, thrombocytopenia, DNR status, glaucoma, and with known left inguinal hernia. Patient was sent from [facility] to the ED for evaluation of low platelets. History is limited due to patient being nonverbal at baseline. Allergies: NKA - Physicial Exam PE: 05/03/19 16:59 agree with resident exam - Medical Decision Making 05/03/19 18:48 83-year-old male with a recent subdural hematoma presents emergency department for thrombocytopenia to 70,000 with request for platelet transfusion given recent intracranial hemorrhage. Per the residential the patient's goal is to keep platelets above 100,000. As such we will transfuse the patient. He has had no other change in his mental status or clinical clinical status per the residential and is at baseline. We will consent the patient's family members for blood transfusion. Anticipate admission Heart Score/ECG Review #1 05/03/19 18:49 Twelve-lead EKG was performed and reviewed by me. Normal sinus rhythm, rate 87. Left axis deviation. No ST elevations. T wave inversions in aVL.When compared to previous EKG, no significant changes.
--- NOTE | 2019-05-03 19:19 | PDOC ---
*Physical Exam - Vital Signs Last Vital Signs Temp Pulse Resp BP Pulse Ox 98.2 F 87 16 178/90 H 96 05/03/19 16:20 05/03/19 16:20 05/03/19 16:20 05/03/19 16:20 05/03/19 16:20 ED Treatment Course - LABORATORY CBC & Chemistry Diagram: 05/03/19 17:12 05/03/19 17:17 - ADDITIONAL ORDERS Additional order review: Laboratory Results 05/03/19 05/03/19 17:17 17:12 Sodium 134 L Potassium 4.4 Chloride 100 Carbon Dioxide 31 Anion Gap 4 L BUN 23.3 H Creatinine 0.8 Est GFR (CKD-EPI)AfAm 94.41 Est GFR (CKD-EPI)NonAf 81.46 Random Glucose 186 H Calcium 9.0 Total Bilirubin 0.4 AST 53 H ALT 101 H Alkaline Phosphatase 61 Total Protein 7.1 Albumin 3.2 L Blood Type B POSITIVE Antibody Screen Negative 05/03/19 17:12 RBC 2.95 L MCV 92.1 MCHC 32.6 RDW 15.7 MPV 10.4 Neutrophils % 20.5 L D Lymphocytes % 28.7 D Monocytes % 50.4 H D Eosinophils % 0.4 Basophils % 0.0 Medical Decision Making - Medical Decision Making Pt was signed out to me by resident Dr. Rosenbaum, who explained the presentation, ED course, any pending results, and needed interventions. Pending results include admission to hospitalist team. Pt is currently stable and is lying comfortably. 05/03/19 19:18 Pt admitted to hospitalist team (Dr. Aguirre). Pt stable and resting. 05/03/19 19:40 Discharge - Discharge Information Problems reviewed: Yes Clinical Impression/Diagnosis: Thrombocytopenia Traumatic brain injury Qualifiers: Encounter type: sequela Loss of consciousness presence/duration: with LOC of unspecified duration Qualified Code(s): S06.9X9S - Unspecified intracranial injury with loss of consciousness of unspecified duration, sequela Condition: Stable - Admission Yes - Follow up/Referral - Patient Discharge Instructions - Post Discharge Activity
--- NOTE | 2019-05-03 21:45 | HP ---
Admitting History and Physical - Primary Care Physician PCP: Dr. Aguirre - Admission Chief Complaint: Blood transfusion, low plt History of Present Illness: 83 year old male with significant past medical history of traumatic brain injury (s/p intracranial brain injury, 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 Patient was sent from [facility] to the ED for evaluation of low platelets. Patient was seen by filler mixer Dr. Nobles today who noted a platelet count of 74. Sent in for transfusion of 3 units of platelets for counts above 100 because of his recent history of brain bleed. Patient is non-verbal and has difficulty ambulating at baseline. History obtained from via brothel keeper. History Source: Family Member Limitations to Obtaining History: Clinical Condition, Dementia - Past Medical History DATA TECHNICAL LEAD: Yes: CVA, Other (traumatic brain injury/SDH) Cardiovascular: Yes: HTN, Hyperlipdemia Heme/Onc: Yes: Thrombocytopenia (being worked up by filler mixer - unknown etiology) ENT: Yes: Other (glaucoma) Endocrine: Yes: Diabetes Mellitus, Hypothyroidism - Past Surgical History Past Surgical History: Yes: Craniotomy, Hernia Repair (??? upper midline scar, no groin scars) - Advance Directives Advance Directives: Yes: DNR - Smoking History Smoking history: Never smoked Have you smoked in the past 12 months: No - Alcohol/Substance Use Hx Alcohol Use: No History of Substance Use: reports: None - Social History Usual Living Arrangement: Yes: [facility] ADL: Support Services History of Recent Travel: No Home Medications - Allergies Allergies/Adverse Reactions: Allergies Allergy/AdvReac Type Severity Reaction Status Date / Time No Known Allergies Allergy Verified 05/03/19 16:20 - Home Medications Home Medications: Ambulatory Orders Acetaminophen [Tylenol] 325 mg PO ASDIR 04/16/19 Amlodipine Besylate [Norvasc -] 2.5 mg PO DAILY 04/16/19 Dorzolamide HCl/Pf [Dorzolamide 2% Eye Drop] 10 ml OP TID 04/16/19 Glipizide 5 mg PO DAILY 04/16/19 Labetalol HCl 100 mg PO BID 04/16/19 Levothyroxine [Synthroid -] 50 mcg PO DAILY 04/16/19 Sennosides [Senna] 8.6 mg PO DAILY 04/16/19 Albuterol 2.5/Ipratropium 0.5 [Duoneb -] 1 neb IH QID 05/03/19 Docusate Liquid [Colace Liquid -] 200 mg PO HS 05/03/19 Finasteride 5 mg PO DAILY 05/03/19 Irbesartan 150 mg PO DAILY 05/03/19 Latanoprost/Pf [Latanoprost 0.005% Eye Drop] 7.5 ml OP HS 05/03/19 Multivitamin [Multiple Vitamins] 1 each PO DAILY 05/03/19 Family Medical History Family History: Unable to Obtain ((s/p intracranial brain injury, nonverbal at baseline, subdural hematoma, dementia, aphasia) Review of Systems Unable to obtain ROS, reason: dementia, Aphasia Physical Examination Vital Signs: Vital Signs Temperature 98.6 F 05/03/19 20:42 Pulse Rate 88 05/03/19 20:42 Respiratory Rate 19 05/03/19 20:42 Blood Pressure 158/76 05/03/19 20:42 O2 Sat by Pulse Oximetry (%) 98 05/03/19 20:42 Constitutional: Yes: No Distress, Calm Eyes: Yes: Conjunctiva Clear, EOM Intact HENT: Yes: Atraumatic, Normocephalic Neck: Yes: Supple, Trachea Midline Cardiovascular: Yes: Regular Rate and Rhythm Respiratory: Yes: Regular, CTA Bilaterally Gastrointestinal: Yes: Normal Bowel Sounds, Soft Musculoskeletal: Yes: WNL Extremities: Yes: WNL Peripheral Pulses WNL: Yes Integumentary: Yes: WNL Neurological: Yes: Other (dementia, non-verbal) Labs: CBC, BMP 05/03/19 17:12 05/03/19 17:17 Imaging - Results Chest X-ray: Report Reviewed (no acute pathology) EKG: Report Reviewed (EKG: Normal sinus rhythm, rate 87. Left axis deviation. No ST elevations. T wave inversions in aVL) Problem List - Problems (1) Thrombocytopenia Code(s): D69.6 - THROMBOCYTOPENIA, UNSPECIFIED (2) Dementia Code(s): F03.90 - UNSPECIFIED DEMENTIA WITHOUT BEHAVIORAL DISTURBANCE (3) History of stroke Code(s): Z86.73 - PRSNL HX OF TIA (TIA), AND CEREB INFRC W/O RESID DEFICITS (4) HLD (hyperlipidemia) Code(s): E78.5 - HYPERLIPIDEMIA, UNSPECIFIED (5) Glaucoma Code(s): H40.9 - UNSPECIFIED GLAUCOMA (6) BPH (benign prostatic hyperplasia) Code(s): N40.0 - BENIGN PROSTATIC HYPERPLASIA WITHOUT LOWER URINRY TRACT SYMP (7) Traumatic brain injury Code(s): S06.9X9A - UNSP INTRACRANIAL INJURY W LOC OF UNSP DURATION, INIT Qualifiers: Encounter type: sequela Loss of consciousness presence/duration: with LOC of unspecified duration Qualified Code(s): S06.9X9S - Unspecified intracranial injury with loss of consciousness of unspecified duration, sequela (8) Aphasia Code(s): R47.01 - APHASIA (9) Constipation Code(s): K59.00 - CONSTIPATION, UNSPECIFIED (10) Diabetes mellitus Code(s): E11.9 - TYPE 2 DIABETES MELLITUS WITHOUT COMPLICATIONS Qualifiers: Diabetes mellitus type: type 2 Diabetes mellitus intermission coordinator insulin use: without assisted use Diabetes mellitus complication status: without complication Qualified Code(s): E11.9 - Type 2 diabetes mellitus without complications (11) HTN (hypertension) Code(s): I10 - ESSENTIAL (PRIMARY) HYPERTENSION Qualifiers: Hypertension type: essential hypertension Qualified Code(s): I10 - Essential (primary) hypertension (12) Hypothyroidism Code(s): E03.9 - HYPOTHYROIDISM, UNSPECIFIED Qualifiers: Hypothyroidism type: unspecified Qualified Code(s): E03.9 - Hypothyroidism , unspecified Assessment/Plan 83 year old male with significant past medical history of traumatic brain injury (s/p intracranial brain injury), subdural hematoma, dementia, aphasia, HTN, HCL, NIDDM/T2DM, hypothyroidism, thrombocytopenia. Patient was sent from [facility] to the ED for evaluation of low platelets. Patient was seen by filler mixer Dr. Nobles today who noted a platelet count of 74. Sent in for transfusion of 3 units of platelets for counts above 100 because of his recent history of brain bleed. Patient is non-verbal and has difficulty ambulating at baseline. History obtained from via brothel keeper. #thrombocytopenia - sent from [place] for low platelets (74) - per Dr. Nobles hematology transfuse 3 units platelets, keep plt above 100 - repeat cbc post transfusion - monitor for acute bleeding - follow up hematology in AM #s/p traumatic SDH (neurosurgery 22 days ago at [facility]) - monitor plt count - monitor for acute bleeding - safety/ fall precaution # HTN/HLD -Amlodipine Besylate 2.5 mg PO DAILY -Labetalol HCl 100 mg PO BID -Irbesartan 150 mg PO DAILY # DM - monitor BGM QD AC - Glipizide 5 mg PO DAILY # Hypothyroidism -Levothyroxine 50 mcg PO DAILY # [place] -Dorzolamide HCl/Pf 10 ml OP TID -Latanoprost/Pf 7.5 ml OP HS # Constipation -Sennosides 8.6 mg PO DAILY -Docusate Liquid 200 mg PO HS # BPH -Finasteride 5 mg PO DAILY Diet: Cardiac diet VTE: SCDs Dispo: medicine Inpatient Visit type - Emergency Visit Emergency Visit: Yes ED Registration Date: 05/03/19 Care time: The patient presented to the Emergency Department on the above date and was hospitalized for further evaluation of their emergent condition. - New Patient This patient is new to me today: Yes Date on this admission: 05/03/19 - Critical Care Critical Care patient: No
[2019-05-03 22:02] VITALS: BMI 28.0
[2019-05-03] MEDS ORDERED: ACETAMINOPHEN 325 MG TABLET (FP) PO PRN (22:06)
[2019-05-04] MEDS ORDERED: DORZOLAMIDE 2% HCL OPHTHALMIC SOLUTION 10 ML BOTTLE OU SCH ×2 (06:00→06:02)
[2019-05-04] MEDS ORDERED: glipiZIDE 5 MG TABLET (FP) PO SCH (07:00)
[2019-05-04] MEDS ORDERED: LEVOTHYROXINE NA 50 MCG TABLET (FP) PO SCH (07:00)
[2019-05-04] MEDS: LABETALOL HCL 100 MG TABLET (FP) PO SCH ×2 (09:57→17:16)
[2019-05-04] MEDS ORDERED: LOSARTAN POTASSIUM 50 MG TABLET (FP) PO SCH (10:00)
[2019-05-04] MEDS ORDERED: amLODIPine BESYLATE 2.5 MG TABLET (FP) PO SCH (10:00)
[2019-05-04] MEDS ORDERED: FINASTERIDE 5 MG TABLET (FP) PO SCH (10:00)
[2019-05-04 11:21] LABS: HEMATOCRIT 25.9 % (35.4-49); HEMOGLOBIN 8.6 GM/dL (11.7-16.9); MCHC 33.2 g/dl (32.0-35.9); MEAN CELL VOLUME 90.6 fl (80-96); MEAN PLT VOLUME 8.8 fl (7.5-11.1); PLATELET COUNT 218 K/MM3 (134-434); RBC 2.86 M/mm3 (4.00-5.60); RDW 15.6 % (11.9-15.9); WHITE BLOOD COUNT 11.5 K/mm3 (4.0-10.0)
[2019-05-04 11:43] LABS: BLOOD UREA NITROGEN 18.8 mg/dL (7-18); CALCIUM 8.9 mg/dL (8.5-10.1); CREATININE 0.8 mg/dL (0.55-1.3)
--- NOTE | 2019-05-04 12:39 | EKG ---
Test Reason : Blood Pressure : / mmHG Vent. Rate : 087 BPM Atrial Rate : 087 BPM P-R Int : 154 ms QRS Dur : 086 ms QT Int : 390 ms P-R-T Axes : 079 -53 083 degrees QTc Int : 469 ms NORMAL SINUS RHYTHM LEFT AXIS DEVIATION ABNORMAL ECG WHEN COMPARED WITH ECG OF 16-APR-2019 17:56, NO SIGNIFICANT CHANGE WAS FOUND Confirmed by TSERING JASMINE, JERONIMO ([id number]) on 05/04/2019 12:39:42 PM Referred By: Confirmed By:JERONIMO CAGLE MD
--- NOTE | 2019-05-04 13:06 | DS ---
Physical Examination Vital Signs: Vital Signs Temperature 98.6 F 05/04/19 10:00 Pulse Rate 83 05/04/19 10:00 Respiratory Rate 20 05/04/19 10:00 Blood Pressure 151/81 05/04/19 10:00 O2 Sat by Pulse Oximetry (%) 95 05/04/19 09:00 Constitutional: Yes: No Distress, Calm Cardiovascular: Yes: Regular Rate and Rhythm Respiratory: Yes: CTA Bilaterally Gastrointestinal: Yes: Normal Bowel Sounds, Soft, Other (peg+) Edema: No Wound/Incision: Yes: Dressing Removed Neurological: Yes: Lethargy Labs: CBC, BMP 05/04/19 09:08 05/04/19 09:08 Discharge Summary Problems reviewed: Yes Reason For Visit: THROMBOCYTOPENIA Current Active Problems BPH (benign prostatic hyperplasia) (Acute) Dementia (Acute) Glaucoma (Acute) HLD (hyperlipidemia) (Acute) History of stroke (Acute) Thrombocytopenia (Acute) Traumatic brain injury (Acute) Hospital Course: Admitted for thrombocytopenia-- sent by Hematology for transfusion of platelets I spoke with pt's family , he has scheduled CT head repeat on Wednesday and will be seeing Neurosurgeon that day platelets now 218 pt mental state is same he will be following up with Dr Alicia Nobles after CT head for bone marrow aspiration Condition: Stable - Instructions Disposition: [facility] - Home Medications Comprehensive Discharge Medication List: Ambulatory Orders Acetaminophen [Tylenol] 325 mg PO ASDIR 04/16/19 Amlodipine Besylate [Norvasc -] 2.5 mg PO DAILY 04/16/19 Dorzolamide HCl/Pf [Dorzolamide 2% Eye Drop] 10 ml OP TID 04/16/19 Glipizide 5 mg PO DAILY 04/16/19 Labetalol HCl 100 mg PO BID 04/16/19 Levothyroxine [Synthroid -] 50 mcg PO DAILY 04/16/19 Sennosides [Senna] 8.6 mg PO DAILY 04/16/19 Albuterol 2.5/Ipratropium 0.5 [Duoneb -] 1 neb IH QID 05/03/19 Docusate Liquid [Colace Liquid -] 200 mg PO HS 05/03/19 Finasteride 5 mg PO DAILY 05/03/19 Irbesartan 150 mg PO DAILY 05/03/19 Latanoprost/Pf [Latanoprost 0.005% Eye Drop] 7.5 ml OP HS 05/03/19 Multivitamin [Multiple Vitamins] 1 each PO DAILY 05/03/19
--- NOTE | 2019-05-04 16:04 | CONSULT ---
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 Patient was sent from [facility] to the ED for evaluation of low platelets. Pt does not speak. History taken from family and records. Pt was sent to ED because of decreased platelet count noted on outpt labs. Pt does see a monorail hooker (Dr. Nobles) who is in the process of working up his thrombocytopenia including a recent BM Bx. Pt has no bleeding/rash/ecchymosis. No other complaints. REVIEW OF SYSTEMS: CONSTITUTIONAL: Absent: fever, chills, diaphoresis, generalized weakness, malaise, loss of appetite, weight change HEENT: Absent: rhinorrhea, nasal congestion, throat pain, throat swelling, difficulty swallowing, mouth swelling, ear pain, eye pain, visual changes CARDIOVASCULAR: Absent: chest pain, syncope, palpitations, irregular heart rate, lightheadedness , peripheral edema RESPIRATORY: Absent: cough, shortness of breath, dyspnea with exertion, orthopnea, wheezing, stridor, hemoptysis GASTROINTESTINAL: Absent: abdominal pain, abdominal distension, nausea, vomiting, diarrhea, constipation, melena, hematochezia GENITOURINARY: Absent: dysuria, frequency, urgency, hesitancy, hematuria, flank pain, genital pain MUSCULOSKELETAL: Absent: myalgia, arthralgia, joint swelling, back pain, neck pain SKIN: Absent: rash, itching, pallor HEMATOLOGIC/IMMUNOLOGIC: Absent: easy bleeding, easy bruising, lymphadenopathy, frequent infections ENDOCRINE: Absent: unexplained weight gain, unexplained weight loss, heat intolerance, cold intolerance NEUROLOGIC: Absent: headache, focal weakness or paresthesias, dizziness, unsteady gait, seizure, mental status changes, bladder or bowel incontinence PSYCHIATRIC: Absent: anxiety, depression, suicidal or homicidal ideation, hallucinations. PHYSICAL EXAMINATION Vital Signs - 24 hr 05/03/19 05/03/19 05/03/19 16:20 19:50 19:59 Temperature 98.2 F 98.5 F 98.5 F Pulse Rate 87 Pulse Rate [ 86 86 Left Radial] Respiratory 16 19 19 Rate Blood Pressure 178/90 H Blood Pressure 158/76 156/76 [Right Arm] O2 Sat by Pulse 96 99 99 Oximetry (%) 05/03/19 05/03/19 05/03/19 20:42 21:29 22:07 Temperature 98.6 F 98.6 F 97.3 F L Pulse Rate 85 85 Pulse Rate [ 88 Left Radial] Respiratory 19 20 20 Rate Blood Pressure 169/86 149/84 Blood Pressure 158/76 [Right Arm] O2 Sat by Pulse 98 98 Oximetry (%) 05/03/19 05/04/19 05/04/19 23:00 02:07 03:00 Temperature 99.1 F Pulse Rate 83 Pulse Rate [ Left Radial] Respiratory 20 Rate Blood Pressure 157/86 Blood Pressure [Right Arm] O2 Sat by Pulse 98 99 Oximetry (%) 05/04/19 05/04/19 05/04/19 06:00 06:39 09:00 Temperature 98.5 F Pulse Rate 87 Pulse Rate [ Left Radial] Respiratory 20 20 Rate Blood Pressure 164/87 Blood Pressure [Right Arm] O2 Sat by Pulse 99 95 Oximetry (%) 05/04/19 05/04/19 10:00 14:00 Temperature 98.6 F 100.1 F H Pulse Rate 83 81 Pulse Rate [ Left Radial] Respiratory 20 20 Rate Blood Pressure 151/81 153/74 Blood Pressure [Right Arm] O2 Sat by Pulse Oximetry (%) Limited exam as pt does not follow commands Gen: Awake, nonverbal, NAD HEENT: NCAT, L ptosis Neck: supple, no jvd noted Cardio: rrr, norm s1s2, no mrg noted Pulm: cta b/l Abd: soft, nontender, nondistended Ext: no edema skin: no rashes/purpura/ecchymoses noted Laboratory Results - last 24 hr 05/03/19 05/03/19 05/03/19 17:12 17:12 17:17 WBC 6.7 RBC 2.95 L Hgb 8.9 L Hct 27.1 L MCV 92.1 MCH 30.1 MCHC 32.6 RDW 15.7 Plt Count 69 L MPV 10.4 Absolute Neuts (auto) 1.4 L Neutrophils % 20.5 L D Neutrophils % (Manual) 56.6 D Band Neutrophils % 0.0 Lymphocytes % 28.7 D Lymphocytes % (Manual) 32.3 D Monocytes % 50.4 H D Monocytes % (Manual) 0 L D Eosinophils % 0.4 Eosinophils % (Manual) 1.0 Basophils % 0.0 Basophils % (Manual) 0.0 Myelocytes % (Man) 1 Promyelocytes % (Man) 0 Blast Cells % (Manual) 0 Nucleated RBC % 1 H Metamyelocytes 0 Platelet Estimate Decreased Polychromasia 1+ Sodium 134 L Potassium 4.4 Chloride 100 Carbon Dioxide 31 Anion Gap 4 L BUN 23.3 H Creatinine 0.8 Est GFR (CKD-EPI)AfAm 94.41 Est GFR (CKD-EPI)NonAf 81.46 POC Glucometer Random Glucose 186 H Calcium 9.0 Total Bilirubin 0.4 AST 53 H ALT 101 H Alkaline Phosphatase 61 Total Protein 7.1 Albumin 3.2 L Blood Type B POSITIVE Antibody Screen Negative 05/04/19 05/04/19 05/04/19 09:08 09:08 11:26 WBC 11.5 H RBC 2.86 L Hgb 8.6 L Hct 25.9 L MCV 90.6 MCH 30.0 MCHC 33.2 RDW 15.6 Plt Count 218 D MPV 8.8 D Absolute Neuts (auto) Neutrophils % Neutrophils % (Manual) Band Neutrophils % Lymphocytes % Lymphocytes % (Manual) Monocytes % Monocytes % (Manual) Eosinophils % Eosinophils % (Manual) Basophils % Basophils % (Manual) Myelocytes % (Man) Promyelocytes % (Man) Blast Cells % (Manual) Nucleated RBC % Metamyelocytes Platelet Estimate Polychromasia Sodium 134 L Potassium 4.0 Chloride 99 Carbon Dioxide 28 Anion Gap 6 L BUN 18.8 H Creatinine 0.8 Est GFR (CKD-EPI)AfAm 94.41 Est GFR (CKD-EPI)NonAf 81.46 POC Glucometer 125 Random Glucose 117 H Calcium 8.9 Total Bilirubin AST ALT Alkaline Phosphatase Total Protein Albumin Blood Type Antibody Screen Active Medications Generic Name Dose Route Start Last Admin Trade Name Freq PRN Reason Stop Dose Admin Acetaminophen 650 mg 05/03/19 22:06 Tylenol - PO Q6H PRN PAIN LEVEL 1-5 Amlodipine Besylate 2.5 mg 05/04/19 10:00 05/04/19 09:57 Norvasc - PO 2.5 mg DAILY LIUDMILA Administration Docusate Sodium 200 mg 05/04/19 22:00 Colace Liquid - PO HS LIUDMILA Dorzolamide HCl 1 drop 05/04/19 06:02 Trusopt 2% OU TID LIUDMILA Finasteride 5 mg 05/04/19 10:00 05/04/19 09:57 Proscar - PO 5 mg DAILY LIUDMILA Administration Glipizide 5 mg 05/04/19 07:00 05/04/19 06:44 Glucotrol - PO 5 mg AM LIUDMILA Administration Labetalol HCl 100 mg 05/04/19 10:00 05/04/19 09:57 Normodyne - PO 100 mg BID LIUDMILA Administration Latanoprost 1 drop 05/04/19 22:00 Xalatan 0.005% Eye Drops - OU HS LIUDMILA Levothyroxine Sodium 50 mcg 05/04/19 07:00 05/04/19 06:44 Synthroid - PO 50 mcg AM LIUDMILA Administration Losartan Potassium 50 mg 05/04/19 10:00 05/04/19 09:57 Cozaar - PO 50 mg DAILY LIUDMILA Administration ASSESSMENT/PLAN: 83 year old male with significant past medical history of traumatic brain injury (s/p intracranial brain injury, 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 Patient was sent from [facility] to the ED for evaluation of low platelets. Heme/ Onc was called to evaluate for thrombocytopenia. Thrombocytopenia -plts improved from 69 to 218 following plt transfusion X 3 -unclear etiology -pt is being worked up as an outpt with his monorail hooker Dispo: We will continue to follow the patient. Thank you for this consultative opportunity. ATTENDING PHYSICIAN STATEMENT I saw and evaluated the patient. I reviewed the resident's note and discussed the case with the resident. I agree with the resident's findings and plan as documented. SUBJECTIVE: OBJECTIVE: ASSESSMENT AND PLAN:
[2019-05-04 16:35] VITALS: PULSE 86
[2019-05-04 18:35] VITALS: BP 152/80; TEMP 98.1
[2019-05-04] MEDS ORDERED: LATANOPROST 0.005% OPHTH SOLN 2.5ML BOTTLE OU SCH (22:00)
[2019-05-04] MEDS ORDERED: DOCUSATE NA 100 MG/10 ML UNIT-DOSE CUPS PO SCH (22:00)
== END 2019-05-04 17:32 | DRG 813 ==
LOC: JER 16:16 → JERBED 16:53 → J8W 20:48
PROVIDERS: ADMIT Internal Medicine; ATTEND Internal Medicine
DX: D69.6 Thrombocytopenia, unspecified (principal); R47.01 Aphasia; E78.5 Hyperlipidemia, unspecified; E03.9 Hypothyroidism, unspecified; N40.0 Benign prostatic hyperplasia without lower urinary tract symptoms; F03.90 Unspecified dementia, unspecified severity, without behavioral disturbance, psychotic disturbance, mood disturbance, and anxiety; I10 Essential (primary) hypertension; E11.9 Type 2 diabetes mellitus without complications; H40.9 Unspecified glaucoma; Z66 Do not resuscitate; S06.9X9S Unspecified intracranial injury with loss of consciousness of unspecified duration, sequela; K59.09 Other constipation; K40.90 Unilateral inguinal hernia, without obstruction or gangrene, not specified as recurrent; I69.320 Aphasia following cerebral infarction
CPT/HCPCS: 36415; 36430; 36511; 71045-TC-FY; 80048; 80053; 82962; 85025; 85027; 86850; 86900; 86901; 93005; 93010; 99285-25; P9034; P9038

== ENCOUNTER 2019-05-19 10:33 | Day surgery (SDC) | payer OTHER ==
[2019-05-19 16:16] VITALS: BP 150/85; PULSE 81; TEMP 98
== END 2019-05-19 16:27 | disposition home or self-care (01) ==
LOC: JINFUSION 10:33
PROVIDERS: ATTEND Internal Medicine Geriatric Medicine
PROC: 30233R1 Transfusion of Nonautologous Platelets into Peripheral Vein, Percutaneous Approach (ICD-10-PCS; principal; 2019-05-19)
DX: D69.6 Thrombocytopenia, unspecified (principal)
CPT/HCPCS: 36430; 36511; 86850; 86900; 86901; 96365; 96366; P9034; P9038